=== PATIENT | female | born 1985 | race Caucasian/White ===

== ENCOUNTER 2016-10-30 10:59 | Emergency (ER) | payer OTHER ==
[~2016-10-30] VITALS: Ht 149.9 cm; Wt 56.5 kg
[2016-10-30 11:01] VITALS: BP 129/63; PULSE 89; RESP 18; TEMP 98.6; O2SAT 100
--- NOTE | 2016-10-30 12:23 | PD ---
HPI . 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 Patient says she initially started about 5 days ago with some pink blood, now with dark brown. She says she took a test and it was positive. She says she is a proximally 6 weeks . She recently made an appoint with her CONE TRUCKER, but can't get in until November 21. She was told to come to the emergency department for further evaluation. She does admit to some lower abdominal cramping for the past 5 days. She denies any high risk sexual behavior. She doesn't really want a pelvic exam unless it is absolutely necessary. PFSH Past Medical History ?: Social History Alcohol Use: No Tobacco Use: No Substance Use: No Allergies-Medications (Allergen,Severity, Reaction): Coded Allergies: No Known Allergies (Unverified , 10/30/16) Reported Meds & Prescriptions Reported Meds & Active Scripts Active No Active Prescriptions or Reported Medications Review of Systems General / Constitutional: No: Fever Eyes: No: Visual changes HENT: No: Headaches Cardiovascular: No: Chest Pain or Discomfort Respiratory: No: Shortness of Breath Gastrointestinal: No: Abdominal Pain Genitourinary: Positive: Vaginal Bleeding, No: Dysuria Musculoskeletal: No: Pain Skin: No Rash Neurologic: No: Weakness Psychiatric: No: Depression Endocrine: No: Polydipsia Hematologic/Lymphatic: No: Easy Bruising Physical Exam Narrative GENERAL: AAO x 3, no acute distress, Well-nourished, well-developed patient. SKIN: Warm and dry. No visible rashes or bruising. HEAD: Normocephalic and atraumatic. EYES: No scleral icterus. No injection or drainage. ENT: No nasal drainage noted. Mucous membranes pink. Airway patent. NECK: Supple, trachea midline. No JVD. CARDIOVASCULAR: Regular rate and rhythm without murmurs, gallops, or rubs. RESPIRATORY: Breath sounds equal bilaterally. No accessory muscle use. No rhonchi or rales. GASTROINTESTINAL: Abdomen soft, non-tender, nondistended. EXTREMITIES: No cyanosis or edema. BACK: No obvious deformity. NEURO: CN II-12 intact, PSYCH: AAO x 3, normal affect. Data Data Last Documented VS Vital Signs Date Time Temp Pulse Resp B/P Pulse Ox O2 Delivery O2 Flow Rate FiO2 10/30/16 12:24 16 10/30/16 11:01 98.6 89 129/63 100 Room Air Orders Complete Blood Count With Diff (10/30/16 12:24) Basic Metabolic Panel (Bmp) (10/30/16 12:24) Urinalysis - C+S If Indicated (10/30/16 12:24) Ed Urine Pregnancytest Poc (10/30/16 12:24) Beta Hcg (Quant/Titer) (10/30/16 12:49) Us Pelvis (Ques Pr/Ect)W Trans (10/30/16 ) Labs Laboratory Tests Test 10/30/16 12:30 White Blood Count 7.8 TH/MM3 Red Blood Count 4.68 MIL/MM3 Hemoglobin 12.8 GM/DL Hematocrit 37.9 % Mean Corpuscular Volume 81.1 FL Mean Corpuscular Hemoglobin 27.3 PG Mean Corpuscular Hemoglobin 33.6 % Concent Red Cell Distribution Width 14.9 % Platelet Count 188 TH/MM3 Mean Platelet Volume 10.0 FL Neutrophils (%) (Auto) 67.1 % Lymphocytes (%) (Auto) 22.3 % Monocytes (%) (Auto) 8.4 % Eosinophils (%) (Auto) 1.7 % Basophils (%) (Auto) 0.5 % Neutrophils # (Auto) 5.2 TH/MM3 Lymphocytes # (Auto) 1.7 TH/MM3 Monocytes # (Auto) 0.6 TH/MM3 Eosinophils # (Auto) 0.1 TH/MM3 Basophils # (Auto) 0.0 TH/MM3 CBC Comment DIFF FINAL Differential Comment Urine Color YELLOW Urine Turbidity HAZY Urine pH 6.5 Urine Specific [place] 1.025 Urine Protein TRACE mg/dL Urine Glucose (UA) NEG mg/dL Urine Ketones NEG mg/dL Urine Occult Blood MOD Urine Nitrite NEG Urine Bilirubin NEG Urine Urobilinogen LESS THAN 2.0 MG/DL Urine Leukocyte Esterase TRACE Urine RBC 1 /hpf Urine WBC 3 /hpf Urine Squamous Epithelial 1 /hpf Cells Urine Amorphous Sediment FEW Urine Bacteria OCC /hpf Urine Mucus MOD /lpf Microscopic Urinalysis Comment CULT NOT INDICATED Sodium Level 139 MEQ/L Potassium Level 3.7 MEQ/L Chloride Level 106 MEQ/L Carbon Dioxide Level 27.1 MEQ/L Anion Gap 6 MEQ/L Blood Urea Nitrogen 12 MG/DL Creatinine 0.60 MG/DL Estimat Glomerular Filtration 117 ML/MIN Rate Random Glucose 69 MG/DL Calcium Level 8.6 MG/DL Human Chorionic Gonadotropin, 7610 MIU/ML Quant MDM Medical Decision Making Medical Screen Exam Complete: Yes Emergency Medical Condition: Yes Medical Record Reviewed: Yes Differential Diagnosis threatened , implantation bleeding, spontaneous Narrative Course 31-year-old female here with complaints of vaginal spotting. She also has some cramping abdominal pain. Labs have been ordered. Ultrasound ordered. Patient declined a pelvic exam. I advised her that this is how we collect samples for STDs etc. She was not concerned with exposure. I discussed the results with the patient. I recommend repeat beta hCG in 2 days. Laboratory Tests Test 10/30/16 12:30 White Blood Count 7.8 TH/MM3 Red Blood Count 4.68 MIL/MM3 Hemoglobin 12.8 GM/DL Hematocrit 37.9 % Mean Corpuscular Volume 81.1 FL Mean Corpuscular Hemoglobin 27.3 PG Mean Corpuscular Hemoglobin 33.6 % Concent Red Cell Distribution Width 14.9 % Platelet Count 188 TH/MM3 Mean Platelet Volume 10.0 FL Neutrophils (%) (Auto) 67.1 % Lymphocytes (%) (Auto) 22.3 % Monocytes (%) (Auto) 8.4 % Eosinophils (%) (Auto) 1.7 % Basophils (%) (Auto) 0.5 % Neutrophils # (Auto) 5.2 TH/MM3 Lymphocytes # (Auto) 1.7 TH/MM3 Monocytes # (Auto) 0.6 TH/MM3 Eosinophils # (Auto) 0.1 TH/MM3 Basophils # (Auto) 0.0 TH/MM3 CBC Comment DIFF FINAL Differential Comment Urine Color YELLOW Urine Turbidity HAZY Urine pH 6.5 Urine Specific [place] 1.025 Urine Protein TRACE mg/dL Urine Glucose (UA) NEG mg/dL Urine Ketones NEG mg/dL Urine Occult Blood MOD Urine Nitrite NEG Urine Bilirubin NEG Urine Urobilinogen LESS THAN 2.0 MG/DL Urine Leukocyte Esterase TRACE Urine RBC 1 /hpf Urine WBC 3 /hpf Urine Squamous Epithelial 1 /hpf Cells Urine Amorphous Sediment FEW Urine Bacteria OCC /hpf Urine Mucus MOD /lpf Microscopic Urinalysis Comment CULT NOT INDICATED Sodium Level 139 MEQ/L Potassium Level 3.7 MEQ/L Chloride Level 106 MEQ/L Carbon Dioxide Level 27.1 MEQ/L Anion Gap 6 MEQ/L Blood Urea Nitrogen 12 MG/DL Creatinine 0.60 MG/DL Estimat Glomerular Filtration 117 ML/MIN Rate Random Glucose 69 MG/DL Calcium Level 8.6 MG/DL Human Chorionic Gonadotropin, 7610 MIU/ML Quant Patient verbalized understanding of instructions, questions were answered, and thanked me for their care. I advised them if their condition worsens, please return to the nearest emergency room for further care. Diagnosis Primary Impression: Vaginal bleeding Additional Impression: Qualified Code: Z3A.01 - Less than 8 weeks gestation of Patient Instructions: General Instructions Additional Instructions: Please return in 2 days for a repeat beta hCG level, or have this done by your [facility] TRUCKER. Med/Other Pt SpecificInfo: No Change to Meds Scripts No Active Prescriptions or Reported Meds Disposition: 01 DISCHARGE HOME Condition: Stable Reina Driscoll Oct 30, 2016 12:23
[2016-10-30 12:51] LABS: AUTOMATED NEUTROPHIL # 5.2 TH/MM3 (1.8-7.7); BASOPHIL % 0.5 % (0.0-2.0); EOSINOPHIL # 0.1 TH/MM3 (0-0.4); EOSINOPHIL % 1.7 % (0.0-4.0); HEMATOCRIT 37.9 % (35.0-46.0); HEMO FLAGS DIFF FINAL; LYMPH % 22.3 % (9.0-44.0); LYMPHOCYTE # 1.7 TH/MM3 (1.0-4.8); MEAN CELL VOLUME 81.1 FL (80.0-100.0); MEAN CORPUSCULAR HEMOGLOBIN 27.3 PG (27.0-34.0); MEAN CORPUSCULAR HGB CONC 33.6 % (32.0-36.0); MONO % 8.4 % (0.0-8.0); NEUT % 67.1 % (16.0-70.0); PLATELET COUNT 188 TH/MM3 (150-450); RED BLOOD COUNT 4.68 MIL/MM3 (4.00-5.30); RED CELL DISTRIBUTION WIDTH 14.9 % (11.6-17.2); WHITE BLOOD COUNT 7.8 TH/MM3 (4.0-11.0)
[2016-10-30 12:54] LABS: BACTERIA, URINE OCC /hpf; BLOOD, URINE MOD (NEG); COMMENT (UR) CULT NOT INDICATED; CULTURE IF INDICATED CULT NOT INDICATED; GLUCOSE,URINE NEG (NEG); KETONE, URINE NEG (NEG); MUCUS URINE MOD /lpf (OCC); NITRITE,URINE NEG (NEG); PH, URINE 6.5 (5.0-8.5); SQUAMOUS EPITHELIAL CELL URINE 1 /hpf (0-5); URINE COLOR YELLOW (YELLW/STRAW)
[2016-10-30 13:10] LABS: BICARBONATE 27.1 MEQ/L (21.0-32.0); POTASSIUM 3.7 MEQ/L (3.5-5.1)
[2016-10-30 13:23] LABS: BETA HCG QUANT 7610 MIU/ML (0-5)
--- NOTE | 2016-10-30 13:56 | RADRPT ---
EXAM DATE/TIME: 10/30/2016 12:59 [facility] COMPARISON: No previous studies available for comparison. INDICATIONS : Pelvic cramping and spotting. LAB(S): Beta-hC,610 MEDICAL HISTORY : . SURGICAL HISTORY : section. ENCOUNTER: Initial ACUITY: 4-6 days PAIN SCORE: 3/10 LOCATION: Bilateral pelvis MEASUREMENTS: UTERUS: 9.8 x 7.7 x 5.2 cm ENDOMETRIAL STRIPE: 18 mm RIGHT OVARY: 3.0 x 3.2 x 1.8 cm LEFT OVARY: 2.9 x 2.7 x 1.4 cm FREE FLUID: Yes posterior cul de sac CROWN RUMP LENGTH: 0.4 cm = 6 WKS 0 DAYS FHR: 124 BPM FINDINGS: UTERUS: Heterogeneous echotexture without a mass. section scar is present. There is an eccentrically located gestational sac within the endometrium measuring 1.3 x 1.1 x 0.8 cm. Yolk sac is present and embryo crown-rump length measurement is 0.35 cm. M. mode Doppler documented heart rate of 124 beats per minute. RIGHT OVARY: Ovary contains no mass or significant cystic lesion. Follicles are present. LEFT OVARY: Ovary contains no mass or significant cystic lesion. Follicles are present. MISCELLANEOUS: No significant free fluid. CONCLUSION: Normal intrauterine with estimated age of 6 weeks and zero days. heart rate of 124 be ats per minute is documented. Marciano Malik MD on October 30, 2016 at 13:50 Board Certified Radiologist. This report was verified electronically.
== END 2016-10-30 14:21 | disposition home or self-care (01) ==
LOC: NEPD 10:59
DX: O20.9 Hemorrhage in early pregnancy, unspecified (principal); Z3A.01 Less than 8 weeks gestation of pregnancy
CPT/HCPCS: 76700; 76817; 80048; 81001; 84702; 84703; 85025

== ENCOUNTER 2016-11-01 13:50 | Emergency (ER) | payer OTHER ==
[~2016-11-01] VITALS: Ht 149.9 cm; Wt 56.5 kg
[2016-11-01 13:51] VITALS: BP 127/60; PULSE 87; RESP 18; TEMP 98.7; O2SAT 100
--- NOTE | 2016-11-01 14:15 | PD ---
HPI Chief Complaint: Medical Clearance Time Seen by Provider: 14:15 Travel History International Travel<30 days: No Contact w/Intl Traveler<30days: No Traveled to known affect area: No History of Present Illness HPI 31-year-old female presents to emergency department for evaluation of beta hCG. Patient was seen and evaluated 2 days ago. 6 week intrauterine gestation was noted. She was encouraged to return in 2 days for repeat beta. Patient does report very small amount of brownish spotting. Mild abdominal cramping. No fever or chills. No nausea or vomiting. No other symptoms to report. PFS Past Medical History Medical History: Denies Significant Hx ?: Past Surgical History Surgical History: No Previous Surgery Section: Yes (x2) Social History Alcohol Use: No Tobacco Use: No Substance Use: No Allergies-Medications (Allergen,Severity, Reaction): Coded Allergies: No Known Allergies (Unverified , 10/30/16) Reported Meds & Prescriptions Reported Meds & Active Scripts Active No Active Prescriptions or Reported Medications Review of Systems Except as stated in HPI: all other systems reviewed are Neg Physical Exam Narrative GENERAL: Well-nourished, well-developed female patient, in no acute distress SKIN: Focused skin assessment warm/dry. HEAD: Normocephalic. EYES: No scleral icterus. No injection or drainage. NECK: Supple, trachea midline. No JVD or lymphadenopathy. CARDIOVASCULAR: Regular rate and rhythm without murmurs, gallops, or rubs. RESPIRATORY: Breath sounds equal bilaterally. No accessory muscle use. GASTROINTESTINAL: Abdomen soft, non-tender, nondistended. MUSCULOSKELETAL: No cyanosis, or edema. BACK: Nontender without obvious deformity. No CVA tenderness. Data Data Last Documented VS Vital Signs Date Time Temp Pulse Resp B/P Pulse Ox O2 Delivery O2 Flow Rate FiO2 11/01/16 13:51 98.7 87 18 127/60 100 Room Air Orders Beta Hcg (Quant/Titer) (11/01/16 13:52) Labs Laboratory Tests Test 11/01/16 14:05 Human Chorionic Gonadotropin, 9570 MIU/ML Quant [facility] Medical Decision Making Medical Screen Exam Complete: Yes Emergency Medical Condition: Yes Medical Record Reviewed: Yes Differential Diagnosis versus menses versus and versus missed Narrative Course 31-year-old female presents to the emergency department for recheck beta hCG. Beta hCG has increased to 9570. I have instructed the patient to follow-up with PLASTIC EXTRUSION OPERATOR. To maintain pelvic and adequate oral hydration. Her voices understanding. She agrees to return immediately with any acute worsening of symptoms. Diagnosis Primary Impression: Qualified Code: Z3A.01 - Less than 8 weeks gestation of Additional Impression: Vaginal bleeding Referrals: Movie Writer Patient Instructions: General Instructions, Threatened Miscarriage (ED) Additional Instructions: Pelvic rest Follow-up with a primary care provider Seek bin packer evaluation Return immediately with any acute worsening of symptoms Med/Other Pt SpecificInfo: No Change to Meds Scripts No Active Prescriptions or Reported Meds Disposition: DISCHARGE HOME Condition: Stable ChuyJoana SARMIENTO Nov 01, 2016 14:15
[2016-11-01 15:16] LABS: BETA HCG QUANT 9570 MIU/ML (0-5)
== END 2016-11-01 15:49 | disposition home or self-care (01) ==
LOC: NEPD 13:50
DX: O20.9 Hemorrhage in early pregnancy, unspecified (principal); Z3A.01 Less than 8 weeks gestation of pregnancy
CPT/HCPCS: 84702; 99283

== ENCOUNTER 2017-06-14 08:53 | Inpatient (IN) | payer OTHER ==
[~2017-06-14] VITALS: Ht 149.9 cm; Wt 65.0 kg
[2017-06-14] VITALS (11 sets, daily range): BP systolic 102–135; BP diastolic 61–94; PULSE 83–119; RESP 16–18; TEMP 97.8–98.7; O2SAT 100
[2017-06-14] MEDS: PCA - TOTAL MG MORPHINE DELIVERED PER SHIFT SCH (01:06)
[2017-06-14] MEDS ORDERED: LACTATED RINGER'S 1000 ML INJ 1,000 ML IV ONE ×2 (09:09→12:00)
[2017-06-14] MEDS ORDERED: ACETAMINOPHEN 1000 MG/100 ML 100 ML IV ONE ×2 (09:18→18:15)
[2017-06-14] MEDS ORDERED: MORPHINE SULFATE PF 5 MG/10 ML VIAL ONE (09:18)
--- NOTE | 2017-06-14 09:25 | HHI.HP ---
HPI Chief Complaint scheduled C/S Date Seen: Jun 14, 2017 Time Seen: 09:15 Travel History International Travel<30 Days: No Contact w/Intl Traveler<30Days: No Known Affected Area: No History of Present Illness HPI Mrs. Somers is a 31yo at 39/2 weeks gestation with no significant PMH presenting today for repeat C/S. She states that she has no complaints. No CP, no GONZALEZ, no blurry vision, no contractions, no vaginal bleeding, no dysuria. She is feeling the baby move. 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 denies alcohol, tobacco, or illicit drug use Alcohol Use: No Tobacco Use: No Substance Abuse: No Allergies-Medications (Allergen,Severity, Reaction): Coded Allergies: No Known Allergies (Unverified Allergy, Unknown, 06/14/17) Home Meds No Active Prescriptions or Reported Meds Review of Systems General / Constitutional: No: Fever, Chills Eyes: No: Blurred Vision HENT: No: Headaches Cardiovascular: No: Chest Pain or Discomfort Respiratory: No: Short of Breath Gastrointestinal: No: Nausea, Vomiting, Abdominal Pain Genitourinary: No: Dysuria Musculoskeletal: No: Weakness Skin: No Rash Physical Exam Vital Signs Date Time Temp Pulse Resp B/P (MAP) Pulse Ox O2 Delivery O2 Flow Rate FiO2 06/14/17 09:16 98.7 18 06/14/17 09:16 83 135/88 (104) 06/14/17 09:15 119 119/94 (102) Narrative GENERAL: Well-nourished, well-developed patient. SKIN: Warm and dry. HEAD: Normocephalic and atraumatic. EYES: No scleral icterus. No injection or drainage. ENT: No nasal drainage noted. Mucous membranes pink. Airway patent. NECK: Supple, trachea midline. No JVD. CARDIOVASCULAR: Regular rate and rhythm without murmurs, gallops, or rubs. RESPIRATORY: Breath sounds equal bilaterally. No accessory muscle use. ABDOMEN/GI: Abdomen soft, non-tender, bowel sounds present, no rebound, no guarding Gravid to 39 weeks size FHT's: Category: 1 Baseline: 130s Reactive: yes Variability: moderate Decels: none EXTREMITIES: No cyanosis or edema. BACK: Nontender without obvious deformity. No CVA tenderness. NEUROLOGICAL: Awake and alert. Motor and sensory grossly within normal limits. Five out of 5 muscle strength in all muscle groups. Normal speech. Caprini VTE Risk Assessment Caprini VTE Risk Assessment: Mod/High Risk (score >= 2) Caprini Risk Assessment Model Point Value = 1 Point Value = 2 Point Value = 3 Point Value = 5 Age 41-60 Minor surgery BMI > 25 kg/m2 Swollen legs Varicose veins or History of unexplained or recurrent spontaneous Oral contraceptives or hormone replacement Sepsis (< 1 month) Serious lung disease, including pneumonia (< 1 month) Abnormal pulmonary function Acute myocardial infarction Congestive heart failure (< 1 month) History of inflammatory bowel disease Medical patient at bed rest Age 61-74 Arthroscopic surgery Major open surgery (> 45 min) Laparoscopic surgery (> 45 min) Malignancy Confined to bed (> 72 hours) Immobilizing plaster cast Central venous access Age >= 75 History of VTE Family history of VTE Factor V Leiden Prothrombin [id number] Lupus anticoagulant Anticardiolipin antibodies Elevated serum homocysteine Heparin-induced thrombocytopenia Other congenital or acquired thrombophilia Stroke (< 1 month) Elective arthroplasty Hip, pelvis, or leg fracture Acute spinal cord injury (< 1 month) Prophylaxis Regimen Total Risk Factor Score Risk Level Prophylaxis Regimen 0-1 Low Early ambulation 2 Moderate Order ONE of the following: *Sequential Compression Device (SCD) *Heparin 5000 units SQ BID 3-4 Higher Order ONE of the following medications: *Heparin 5000 units SQ TID *Enoxaparin/Lovenox 40 mg SQ daily (WT < 150 kg, CrCl > 30 mL/min) *Enoxaparin/Lovenox 30 mg SQ daily (WT < 150 kg, CrCl > 10-29 mL/min) *Enoxaparin/Lovenox 30 mg SQ BID (WT < 150 kg, CrCl > 30 mL/min) AND/OR *Sequential Compression Device (SCD) 5 or more Highest Order ONE of the following medications: *Heparin 5000 units SQ TID (Preferred with Epidurals) *Enoxaparin/Lovenox 40 mg SQ daily (WT < 150 kg, CrCl > 30 mL/min) *Enoxaparin/Lovenox 30 mg SQ daily (WT < 150 kg, CrCl > 10-29 mL/min) *Enoxaparin/Lovenox 30 mg SQ BID (WT < 150 kg, CrCl > 30 mL/min) AND *Sequential Compression Device (SCD) Data Data Vital Signs Reviewed: Yes Orders Orders Admit To Inpatient (06/14/17 ) Vital Signs (Adult) .ON ADMISSION (06/14/17 09:09) Activity Oob Ad María (06/14/17 09:09) Heart (06/14/17 09:09) Urinary Catheter Management SOY.Q8H (06/14/17 09:09) ^ Preps (06/14/17 09:09) Scd / Xavier / Foot Pump SOY.QSHIFT (06/14/17 09:09) ^ Ultrasound For Locatio (06/14/17 09:09) Diet Npo (06/14/17 Breakfast) Lactated Ringer's 1000 Ml Inj (Lr 1000 M (06/14/17 09:09) Lactated Ringer's 1000 Ml Inj (Lr 1000 M (06/14/17 09:39) Cefazolin Inj (Ancef Inj) (06/14/17 10:15) Citric Acid-Sodium Citrate Liq (Bicitra (06/14/17 10:45) Type And Screen (06/14/17 09:09) Complete Blood Count With Diff (06/14/17 09:09) Urinalysis - C+S If Indicated (06/14/17 09:09) Drug Screen, Random Urine (06/14/17 09:09) Specimen To Be Collected PRN (06/14/17 09:09) Specimen To Be Collected PRN (06/14/17 09:09) Morphine Pf Inj (Duramorph Pf 0.5 Mg/Ml (06/14/17 09:18) Acetaminophen 1000 Mg/100 Ml (Ofirmev 10 (06/14/17 09:18) Labs Laboratory Tests Test 06/14/17 09:00 06/14/17 09:10 Assessment/Plan Assessment and Plan 31yo at 39/2 weeks gestation presenting for a scheduled repeat C/S. - records were not found from [facility] -Will conduct labs at this time -Hepatitis panel, HIV, RPR, Rubella pending -CBC on admission with type and screen Admit for C/S DW Delia Herron MD R1 Jun 14, 2017 09:25
[2017-06-14 09:33] LABS: AUTOMATED NEUTROPHIL # 6.4 TH/MM3 (1.8-7.7); BASOPHIL % 0.5 % (0.0-2.0); EOSINOPHIL # 0.1 TH/MM3 (0-0.4); HEMATOCRIT 36.4 % (35.0-46.0); HEMOGLOBIN 12.3 GM/DL (11.6-15.3); LYMPH % 17.6 % (9.0-44.0); LYMPHOCYTE # 1.6 TH/MM3 (1.0-4.8); MEAN CELL VOLUME 83.2 FL (80.0-100.0); MEAN CORPUSCULAR HEMOGLOBIN 28.1 PG (27.0-34.0); MEAN CORPUSCULAR HGB CONC 33.8 % (32.0-36.0); MEAN PLATELET VOLUME 10.6 FL (7.0-11.0); MONO % 9.6 % (0.0-8.0); MONOCYTE # 0.9 TH/MM3 (0-0.9); NEUT % 71.3 % (16.0-70.0); PLATELET COUNT 162 TH/MM3 (150-450); RED BLOOD COUNT 4.38 MIL/MM3 (4.00-5.30); RED CELL DISTRIBUTION WIDTH 14.3 % (11.6-17.2); WHITE BLOOD COUNT 8.9 TH/MM3 (4.0-11.0)
[2017-06-14] MEDS ORDERED: LACTATED RINGER'S 1000 ML INJ 1,000 ML IV SCH (09:39)
[2017-06-14 09:47] LABS: BACTERIA, URINE OCC /hpf; BILIRUBIN, URINE NEG (NEG); BLOOD, URINE NEG (NEG); GLUCOSE,URINE NEG (NEG); KETONE, URINE NEG (NEG); NITRITE,URINE NEG (NEG); SQUAMOUS EPITHELIAL CELL URINE 5 /hpf (0-5); URINE COLOR LIGHT-YELLOW (YELLW/STRAW); URINE LEUKOCYTE ESTERASE TRACE (NEG)
[2017-06-14] MEDS ORDERED: CITRIC ACID-SODIUM CITRATE LIQ 30 ML UDC PO SCH (10:45)
[2017-06-14] MEDS ORDERED: MIDAZOLAM HCL 2 MG/2 ML VIAL ONE (11:38)
[2017-06-14] MEDS ORDERED: BUPIVACAINE HCL PF 0.25% 10 ML VIAL ONE ×3 (11:49→12:24)
[2017-06-14] MEDS ORDERED: DEXAMETHASONE SOD PHOS 4 MG/ML VIAL IV ONE (12:00)
[2017-06-14] MEDS ORDERED: PHENYLEPH/NS 1000 MCG/10 ML SYR IV ONE (12:00)
[2017-06-14] MEDS ORDERED: ONDANSETRON HCL 4 MG/2 ML VIAL IV ONE (12:00)
[2017-06-14] MEDS ORDERED: KETOROLAC TROMETHAMINE 30 MG/ML (IVP) VIAL IV PUSH ONE (12:00)
[2017-06-14] MEDS ORDERED: ceFAZolin INJ 1,000 MG VIAL IV ONE (12:00)
[2017-06-14] MEDS ORDERED: OXYTOCIN 10 UNIT/ML AMP IV ONE (12:00)
[2017-06-14] MEDS ORDERED: PROPOFOL 200 MG/20 ML AMP IV ONE (12:00)
--- NOTE | 2017-06-14 12:48 | PD.OB.DELI ---
Procedure Note Section Procedure Pre Op Diagnosis: (1) 39 weeks gestation of (2) H/O section Post Op Diagnosis: (1) 39 weeks gestation of (2) H/O section Performed by Dima Humphrey Procedure: Repeat Low Transverse Sec, Classical Section Indication for delivery: Desired elective repeat Previous condition: None Informed consent obtained: For anesthesia, For procedure Confirmed correct: Patient, Time-out taken Anesthesia: Spinal Monitoring during procedure: Blood pressure monitoring, environmental monitoring specialist, Pulse oximetry Urinary catheter: Inserted using sterile technique Sterile preparation: In usual fashion Position: Supine with wedge to left side Operative Features Skin Incision: Pfannenstiel Uterine Incision: Classical, Low transverse w/knife / blunt ext Membranes Ruptured: Artificially Presentation: Occiput anterior, Transverse lie Delivery date: Jun 14, 2017 Delivery time: 11:02 Delivery of infant: Other Infant: Female One Minute : 6 Five Minute : 8 Weight: 6'4" Status of : Viable, Nursery present, Resuscitation required Placenta delivered: Intact Medications: Antibiotics Estimated blood loss: 700cc Procedure tolerated: Well Maternal Condition: Stable Condition: Stable Dima Humphrey Jr., MD Jun 14, 2017 12:48
[2017-06-14] MEDS ORDERED: OXYTOCIN 30 UNITS-500ML PREMIX 500 ML ONE (12:59)
[2017-06-14] MEDS ORDERED: ACETAMINOPHEN 325 MG TAB PO PRN (14:15)
[2017-06-14] MEDS ORDERED: ONDANSETRON HCL 4 MG/2 ML VIAL IV PUSH PRN (14:15)
[2017-06-14] MEDS ORDERED: SODIUM CHLORIDE 0.9% FLUSH 10 ML FLUSH IV FLUSH PRN (14:15)
[2017-06-14] MEDS ORDERED: MORPHINE SULFATE 30 MG/30 ML PCA IV SCH (14:15)
[2017-06-14] MEDS ORDERED: NALOXONE HCL 0.4 MG/ML AMP IV PUSH PRN (14:15)
[2017-06-14] MEDS ORDERED: OXYTOCIN 30 UNITS-500ML PREMIX 500 ML IV ONE (14:15)
[2017-06-14] MEDS ORDERED: EPIDURAL-DIPHENHYDRAMINE HCL 50 MG/ML VIAL IV PUSH PRN (18:30)
[2017-06-14] MEDS ORDERED: EPIDURAL-DIPHENHYDRAMINE HCL 50 MG CAP PO PRN (18:30)
[2017-06-14] MEDS ORDERED: EPIDURAL-NALOXONE HCL 0.4 MG/ML AMP IV PUSH PRN (18:30)
[2017-06-14] MEDS ORDERED: EPIDURAL-NO SYSTEMIC NARCOTICS PRN (18:30)
[2017-06-14] MEDS ORDERED: EPIDURAL-DO NOT ADMINISTER ANTICOAGULANTS PRN (18:30)
[2017-06-14] MEDS: ACETAMINOPHEN 1000 MG/100 ML 100 ML IV SCH (19:32)
[2017-06-14] MEDS: LACTATED RINGER'S 1000 ML INJ 1,000 ML IV SCH (19:36)
[2017-06-14] MEDS ORDERED: SODIUM CHLORIDE 0.9% FLUSH 10 ML FLUSH IV FLUSH SCH (21:00)
[2017-06-15] VITALS (10 sets, daily range): BP systolic 110–146; BP diastolic 56–74; PULSE 69–112; RESP 18–20; TEMP 97.9–99; O2SAT 96–100
[2017-06-15] MEDS ORDERED: OXYTOCIN 30 UNITS-500ML PREMIX 500 ML IV PRN (00:15)
[2017-06-15] MEDS: LACTATED RINGER'S 1000 ML INJ 1,000 ML IV SCH (01:04)
[2017-06-15] MEDS: ACETAMINOPHEN 1000 MG/100 ML 100 ML IV SCH (01:04)
[2017-06-15] MEDS: PCA - TOTAL MG MORPHINE DELIVERED PER SHIFT SCH ×2 (05:48→09:57)
[2017-06-15 05:53] LABS: AUTOMATED NEUTROPHIL # 7.5 TH/MM3 (1.8-7.7); BASOPHIL % 0.2 % (0.0-2.0); EOSINOPHIL # 0.1 TH/MM3 (0-0.4); EOSINOPHIL % 0.6 % (0.0-4.0); LYMPH % 13.3 % (9.0-44.0); LYMPHOCYTE # 1.3 TH/MM3 (1.0-4.8); MEAN CELL VOLUME 83.2 FL (80.0-100.0); MEAN CORPUSCULAR HGB CONC 34.9 % (32.0-36.0); MEAN PLATELET VOLUME 10.5 FL (7.0-11.0); MONO % 9.8 % (0.0-8.0); NEUT % 76.1 % (16.0-70.0); PLATELET COUNT 100 TH/MM3 (150-450); RED BLOOD COUNT 2.09 MIL/MM3 (4.00-5.30); RED CELL DISTRIBUTION WIDTH 14.2 % (11.6-17.2); WHITE BLOOD COUNT 9.9 TH/MM3 (4.0-11.0)
[2017-06-15 05:59] LABS: HEMATOCRIT 17.4 % (35.0-46.0); HEMOGLOBIN 6.1 GM/DL (11.6-15.3)
--- NOTE | 2017-06-15 06:58 | HHI.OB ---
Subjective Post Operative Day: 1 Remarks Postoperative day #1. AFVSS overnight. Pain well controlled. Incision clean, dry , and intact, mildly draining. Lochia less than a period. Denies dysuria - spontaneous voiding of 400 ml. No breast tenderness. She is feeding the baby via breast. Appetite good. No nausea or vomiting. Positive flatus. No bowel movement. Ambulating well. Denies fever, chills, cough, shortness of breath, chest pain, blurry vision, muscle cramping, and calf pain. Only complaint is dizziness on standing and with ambulation. Objective Vitals/I&O Vital Signs Date Time Temp Pulse Resp B/P (MAP) Pulse Ox O2 Delivery O2 Flow Rate FiO2 06/15/17 05:48 16 06/15/17 04:00 69 18 121/61 (81) 97 06/15/17 04:00 98.5 06/15/17 00:00 97.9 69 18 110/56 (74) 99 06/14/17 19:32 16 06/14/17 15:42 98.0 98 18 113/72 (86) 06/14/17 13:32 117/67 (84) 06/14/17 13:31 111 18 06/14/17 13:31 100 06/14/17 13:21 97.9 06/14/17 13:16 102/74 (83) 06/14/17 13:14 113 18 100 06/14/17 13:03 112 06/14/17 13:01 18 115/64 (81) 100 06/14/17 12:41 97.8 16 100 06/14/17 12:41 88 121/61 (81) 06/14/17 09:16 98.7 18 06/14/17 09:16 83 135/88 (104) 06/14/17 09:15 119 119/94 (102) Result Diagram: 06/15/17 0501 Objective Remarks GENERAL: Well-nourished, well-developed patient. CARDIOVASCULAR: Regular rate and rhythm without murmurs, gallops, or rubs. RESPIRATORY: Breath sounds equal bilaterally. No accessory muscle use. ABDOMEN/GI: Abdomen soft, mildly tender, bowel sounds present. Incision: Clean, dry and intact. Fundus: Firm, non-tender at umbilicus. GENITOURINARY: Light to moderate bleeding. EXTREMITIES: No cyanosis or edema, non-tender, without signs of DVT. Medications and IVs Current Medications Medications (Trade) Dose Ordered Sig/Evelio Route Start Time Stop Time Status Last Admin Lactated Ringer's 1,000 ml @ 100 mls/hr Q10H IV 06/14/17 19:11 06/15/17 15:10 06/15/17 01:04 Oxytocin 500 ml @ 100 mls/hr UNSCH X1 PRN IV 06/15/17 00:15 06/16/17 00:14 (NS Flush) 2 ml BID IV FLUSH 06/14/17 21:00 (NS Flush) 2 ml UNSCH PRN IV FLUSH 06/14/17 14:15 (Mylicon Chew) 80 mg QID PRN PO 06/14/17 14:15 (Tylenol) 650 mg Q6H PRN PO 06/14/17 14:15 (Percocet 5-325 Mg) 1 tab Q4H PRN PO 06/14/17 14:15 (Percocet 5-325 Mg) 2 tab Q4H PRN PO 06/14/17 14:15 (Dot-Colace) 2 tab Q12H PRN PO 06/14/17 14:15 (M-M-R Ii Inj) 0.5 ml ONCE ONCE SQ 06/15/17 16:00 06/15/17 16:01 (Boostrix Inj) 0.5 ml ONCE ONCE IM 06/15/17 16:00 06/15/17 16:01 (Zofran Inj) 4 mg Q6H PRN IV PUSH 06/14/17 14:15 (Narcan Inj) 0.4 mg UNSCH PRN IV PUSH 06/14/17 14:15 (Morphine 1 Mg/ ml CLEANER WALL) 30 mg UNSCH IV 06/14/17 14:15 06/14/17 19:32 CLEANER WALL Dosage Infused (Pha) 1 Q8HR .XX 06/14/17 22:00 06/15/17 05:48 (Flu (Quadrivalent) Vaccine Inj) 0.5 ml ONCE ONCE IM 06/15/17 09:00 06/15/17 09:01 Miscellaneous Information NO SYSTEMIC NARCOTICS TO BE GIVEN FO... UNSCH PRN .XX 06/14/17 18:30 06/15/17 18:29 (Narcan Inj) 0.4 mg UNSCH PRN IV PUSH 06/14/17 18:30 06/15/17 18:29 (Benadryl Inj) 25 mg Q6H PRN IV PUSH 06/14/17 18:30 06/15/17 18:29 (Benadryl) 50 mg Q6H PRN PO 06/14/17 18:30 06/15/17 18:29 Miscellaneous Information ALL NURSING DEPARTMENTS UNSCH PRN .XX 06/14/17 18:30 06/15/17 18:29 (Ferrous Sulfate) 325 mg BID PO 06/15/17 09:00 Assessment/Plan Assessment and Plan 31 y/o female who is POD# 1 s/p repeat -Continue routine care -Percocet and Motrin PRN pain -Pericolase PRN for constipation -Encouraged OOB. Advised pelvic rest for 6 wks -Will need a follow-up appointment within 1 week for incision check -Re: ctrl - pt has not decided but may get a vasectomy Postoperative blood loss -H/H decreased from 12.3/36.4 to 6.1/17.4 -Patient symptomatic with dizziness -Will transfuse 1 unit PRBC -Repeat H/H 2 hours after transfusion and tomorrow am Seen and discussed with Dr. Humphrey Discharge Planning Possibly in the next 1-2 days Lindsey Howard MD Jun 15, 2017 06:58
[2017-06-15] MEDS ORDERED: diphenhydrAMINE HCL 25 MG CAP PO PRN (07:15)
[2017-06-15] MEDS ORDERED: SODIUM CHLOR 0.9% 250 ML INJ 250 ML IV ONE (07:15)
[2017-06-15] MEDS ORDERED: ACETAMINOPHEN 325 MG TAB PO PRN (07:15)
[2017-06-15] MEDS ORDERED: INFLUENZA VIRUS VACCINE (QUADRIVALENT) 0.5 ML SYR IM ONE (09:00)
[2017-06-15] MEDS: DOCUSATE SODIUM 50 MG/SENNA 8.6 MG TAB PO PRN ×2 (09:55→22:25)
[2017-06-15] MEDS: FERROUS SULFATE 325 MG (65 MG ELEMENTAL IRON) TAB PO SCH ×2 (09:55→18:52)
[2017-06-15] MEDS: oxyCODONE/ACETAMINOPHEN 5 MG/325 MG TAB PO PRN ×4 (09:56→22:28)
[2017-06-15] MEDS: SIMETHICONE 80 MG CHEWABLE TAB PO PRN ×2 (13:00→22:25)
[2017-06-15] MEDS ORDERED: MEASLES, MUMPS, RUBELLA VACCINE 0.5 ML VIAL SQ ONE (16:00)
[2017-06-15] MEDS ORDERED: DIPHTH/TETANUS/ACEL PERTUSSIS (BOOSTER) 0.5 ML VIAL/PFS IM ONE (16:00)
[2017-06-15 17:16] LABS: HEMATOCRIT 22.4 % (35.0-46.0); HEMOGLOBIN 7.8 GM/DL (11.6-15.3)
[2017-06-16] MEDS: oxyCODONE/ACETAMINOPHEN 5 MG/325 MG TAB PO PRN ×5 (03:41→20:16)
[2017-06-16 06:29] LABS: HEMATOCRIT 21.6 % (35.0-46.0); HEMOGLOBIN 7.4 GM/DL (11.6-15.3); MEAN CELL VOLUME 84.3 FL (80.0-100.0); MEAN CORPUSCULAR HEMOGLOBIN 28.8 PG (27.0-34.0); MEAN CORPUSCULAR HGB CONC 34.1 % (32.0-36.0); MEAN PLATELET VOLUME 10.1 FL (7.0-11.0); PLATELET COUNT 106 TH/MM3 (150-450); RED BLOOD COUNT 2.56 MIL/MM3 (4.00-5.30); RED CELL DISTRIBUTION WIDTH 14.4 % (11.6-17.2); WHITE BLOOD COUNT 12.4 TH/MM3 (4.0-11.0)
[2017-06-16 08:00] VITALS: BP 124/58; PULSE 91; RESP 20; TEMP 98.2; O2SAT 100
[2017-06-16] MEDS: FERROUS SULFATE 325 MG (65 MG ELEMENTAL IRON) TAB PO SCH ×2 (08:37→20:16)
--- NOTE | 2017-06-16 08:52 | HHI.OB ---
Subjective Post Operative Day: 2 Remarks Pt seen and examined this morning. Post Operative day # 2 AFVSS overnight. Incision covered with multiple 4 x 4's under saturated foot appears to be dried blood. Decreased lochia. Denies dysuria. No breast tenderness. She is feeding the baby via breasts. Appetite good. No nausea or vomiting. Patient has not yet had a bowel movement, but does endorse bowel gas. Ambulating well. Denies calf pain or shortness of breath. Otherwise, she is doing well this morning and has no other concerns. Objective Vitals/I&O Vital Signs Date Time Temp Pulse Resp B/P (MAP) Pulse Ox O2 Delivery O2 Flow Rate FiO2 06/16/17 08:00 98.2 91 20 124/58 (80) 100 06/15/17 20:31 98.8 105 18 128/70 (89) 06/15/17 17:19 98.5 109 20 126/67 (86) 96 06/15/17 14:15 98.8 108 18 121/73 99 06/15/17 14:00 98.8 108 18 121/73 (89) 99 06/15/17 11:40 98.4 112 18 146/73 100 06/15/17 11:13 99.0 112 18 143/74 98 06/15/17 11:11 112 18 143/74 (97) 98 06/15/17 11:11 99.0 06/15/17 10:45 18 06/15/17 09:57 16 Result Diagram: 06/16/17 0546 Objective Remarks GENERAL: Well-nourished, well-developed patient. CARDIOVASCULAR: Regular rate and rhythm without murmurs, gallops, or rubs. RESPIRATORY: Breath sounds equal bilaterally. No accessory muscle use. ABDOMEN/GI: Abdomen soft, mildly tender, bowel sounds present. Incision: Clean, dry and intact. Fundus: Firm, non-tender at umbilicus. GENITOURINARY: Light to moderate bleeding. EXTREMITIES: No cyanosis or edema, non-tender, without signs of DVT. Medications and IVs Current Medications Medications (Trade) Dose Ordered Sig/Evelio Route Start Time Stop Time Status Last Admin (NS Flush) 2 ml BID IV FLUSH 06/14/17 21:00 (NS Flush) 2 ml UNSCH PRN IV FLUSH 06/14/17 14:15 (Mylicon Chew) 80 mg QID PRN PO 06/14/17 14:15 06/15/17 22:25 (Tylenol) 650 mg Q6H PRN PO 06/14/17 14:15 (Percocet 5-325 Mg) 1 tab Q4H PRN PO 06/14/17 14:15 06/15/17 18:13 (Percocet 5-325 Mg) 2 tab Q4H PRN PO 06/14/17 14:15 06/16/17 08:44 (Dot-Colace) 2 tab Q12H PRN PO 06/14/17 14:15 06/15/17 22:25 (Zofran Inj) 4 mg Q6H PRN IV PUSH 06/14/17 14:15 (Ferrous Sulfate) 325 mg BID PO 06/15/17 09:00 06/16/17 08:37 (Tylenol) 650 mg Q4H PRN PO 06/15/17 07:15 (Benadryl) 25 mg Q4H PRN PO 06/15/17 07:15 (Motrin) 600 mg Q6H PRN PO 06/16/17 08:45 UNV Assessment/Plan Assessment and Plan 31 y/o female who is POD# 2 s/p repeat -Continue routine care -Percocet and Motrin PRN pain -Pericolase PRN for constipation -Encouraged OOB. Advised pelvic rest for 6 wks -Will need a follow-up appointment within 1 week for incision check -Re: ctrl - pt has not decided but may get a vasectomy Postoperative blood loss -H/H 06/16/17: 7.4/21.6, stable from posttransfusion H/H -Patient symptomatic with dizziness exacerbated by ambulation -Transfused 1 unit PRBC 06/15/17 -Patient started on ferrous sulfate twice a day -Discharge likely tomorrow pending clinical course Seen and discussed with Lorenzo Caldwell MD R2 Jun 16, 2017 08:52
--- NOTE | 2017-06-16 08:52 | HHI.DCPOC ---
Discharge Care Plan Diagnosis: (1) Single delivery by Report Symptoms to Your Doctor -Temperature above 100.5 degrees -Redness, of incision or excessive or foul smelling drainage -Unusual pain or calf pain -Increased vaginal bleeding -Painful or difficulty urinating -Feelings of extreme sadness or anxiety after 2 weeks Goals to Promote Your Health * To prevent worsening of your condition and complications * To maintain your health at the optimal level Directions to Meet Your Goals Take your medications as prescribed Follow your dietary instruction Follow activity as directed Ensure plenty of rest for recovery Drink fluids for hydration Keep your appointments as scheduled Take your immunizations and boosters as scheduled If your symptoms worsen call your PCP, if no PCP go to Urgent Care Center or Emergency Room Smoking is Dangerous to Your Health. Avoid second hand smoke Call the 24-hour crisis hotline for domestic abuse at Lorenzo Cohen MD R2 Jun 16, 2017 08:52
[2017-06-16] MEDS: IBUPROFEN 600 MG TAB PO PRN ×3 (09:21→20:16)
[2017-06-16] MEDS: SIMETHICONE 80 MG CHEWABLE TAB PO PRN ×2 (09:21→20:23)
[2017-06-16 21:06] VITALS: BP 122/67; PULSE 91; RESP 19; TEMP 98.1
[2017-06-17] MEDS: IBUPROFEN 600 MG TAB PO PRN ×2 (04:14→10:41)
[2017-06-17] MEDS: oxyCODONE/ACETAMINOPHEN 5 MG/325 MG TAB PO PRN ×2 (04:15→10:41)
[2017-06-17] MEDS ORDERED: PERI PO (07:29)
[2017-06-17] MEDS ORDERED: IBUP-232 PO (07:29)
[2017-06-17] MEDS ORDERED: FERR325T20 PO ×2 (07:29→09:02)
[2017-06-17] MEDS ORDERED: OXYC1TAB63 PO (07:29)
[2017-06-17 07:40] VITALS: BP 121/64; PULSE 76; RESP 18; TEMP 97.8
--- NOTE | 2017-06-17 09:25 | HHI.OB ---
Subjective Post Operative Day: 3 Remarks Pt seen and examined this morning. Post Operative day #3 AFVSS overnight. Incision with multiple sudeep intact with no signs of acute infection. Decreased lochia. Denies dysuria. No breast tenderness. She is feeding the baby via the breast. Appetite good. No nausea or vomiting. Patient has not yet had a bowel movement, but does endorse bowel gas. Ambulating well. Denies calf pain or shortness of breath. Otherwise, she is doing well this morning and has no other concerns. Objective Vitals/I&O Vital Signs Date Time Temp Pulse Resp B/P (MAP) Pulse Ox O2 Delivery O2 Flow Rate FiO2 06/17/17 07:40 76 121/64 (83) 06/17/17 07:40 97.8 18 06/16/17 21:06 98.1 91 19 122/67 (85) Result Diagram: 06/16/17 0546 Objective Remarks GENERAL: Well-nourished, well-developed patient. CARDIOVASCULAR: Regular rate and rhythm without murmurs, gallops, or rubs. RESPIRATORY: Breath sounds equal bilaterally. No accessory muscle use. ABDOMEN/GI: Abdomen soft, mildly tender, bowel sounds present. Incision: Clean, dry and intact. Fundus: Firm, non-tender at umbilicus. GENITOURINARY: Light to moderate bleeding. EXTREMITIES: No cyanosis or edema, non-tender, without signs of DVT. Medications and IVs Current Medications Medications (Trade) Dose Ordered Sig/Evelio Route Start Time Stop Time Status Last Admin (NS Flush) 2 ml BID IV FLUSH 06/14/17 21:00 (NS Flush) 2 ml UNSCH PRN IV FLUSH 06/14/17 14:15 (Mylicon Chew) 80 mg QID PRN PO 06/14/17 14:15 06/16/17 20:23 (Tylenol) 650 mg Q6H PRN PO 06/14/17 14:15 (Percocet 5-325 Mg) 1 tab Q4H PRN PO 06/14/17 14:15 06/17/17 04:15 (Percocet 5-325 Mg) 2 tab Q4H PRN PO 06/14/17 14:15 06/16/17 20:16 (Dot-Colace) 2 tab Q12H PRN PO 06/14/17 14:15 06/15/17 22:25 (Zofran Inj) 4 mg Q6H PRN IV PUSH 06/14/17 14:15 (Ferrous Sulfate) 325 mg BID PO 06/15/17 09:00 06/16/17 20:16 (Tylenol) 650 mg Q4H PRN PO 06/15/17 07:15 (Benadryl) 25 mg Q4H PRN PO 06/15/17 07:15 (Motrin) 600 mg Q6H PRN PO 06/16/17 08:45 06/17/17 04:14 Assessment/Plan Assessment and Plan 31 y/o female who is POD# 3 s/p repeat -Continue routine care -Percocet and Motrin PRN pain -Pericolase PRN for constipation -Encouraged OOB. Advised pelvic rest for 6 wks -Patient sudeep to be removed and Steri-Strips to be applied prior to discharge -Will need a follow-up appointment within 1 week for incision check -Re: ctrl - pt has not decided but may get a vasectomy, plan to discuss at follow-up appointment Postoperative blood loss -H/H 06/16/17: 7.4/21.6, stable from posttransfusion H/H -Patient symptomatic with dizziness exacerbated by ambulation, improved from prior exam -Transfused 1 unit PRBC 06/15/17 -Patient to be discharged home on ferrous sulfate 3 times a day with meals -Discharge today Seen and discussed with Lorenzo Askew MD R2 Jun 17, 2017 09:25
[2017-06-17] MEDS: FERROUS SULFATE 325 MG (65 MG ELEMENTAL IRON) TAB PO SCH (10:41)
== END 2017-06-17 11:29 | disposition home or self-care (01) | DRG 766 ==
LOC: H2EB 08:53 → H1EA 13:51
PROVIDERS: ADMIT Obstetrics & Gynecology; ATTEND Obstetrics & Gynecology
PROC: 10D00Z0 Extraction of Products of Conception, High, Open Approach (ICD-10-PCS; principal; 2017-06-14)
PROC: 30233N1 Transfusion of Nonautologous Red Blood Cells into Peripheral Vein, Percutaneous Approach (ICD-10-PCS; 2017-06-15)
DX: O34.211 Maternal care for low transverse scar from previous cesarean delivery (principal); Z37.0 Single live birth; Z83.3 Family history of diabetes mellitus; Z3A.39 39 weeks gestation of pregnancy; Z23 Encounter for immunization
CPT/HCPCS: 36430; 59025; 80074; 80307; 81001; 85014; 85018; 85025; 85027; 86592; 86703; 86762; 86850; 86900; 86901; 86920; 90686; 90715; G0481; J0131; J0690; J1100; J1885; J2250; J2270; J2274; J2370; J2405; J2590; J3010; J7120; P9016; Q2038

== ENCOUNTER 2017-07-14 12:08 | Emergency (ER) | payer OTHER ==
[~2017-07-14] VITALS: Ht 149.9 cm; Wt 56.7 kg
[~2017-07-14 12:08] MED LIST: FERR325T20 PO; IBUP-232 PO; OXYC1TAB63 PO; PERI PO
--- NOTE | 2017-07-14 12:37 | PD ---
HPI Chief Complaint Incision check Date Seen: Jul 14, 2017 Time Seen: 12:34 Travel History International Travel<30 Days: No Contact w/Intl Traveler<30Days: No Known Affected Area: No History of Present Illness HPI 32-year-old female status post section 4 weeks ago comes in for an incision check. She was seen at the urgent care center placed on antibiotics for a wound infection, Keflex was given. She complains that she has got a little seepage through a hole in her incision, this is been going on for a couple of weeks. Patient denies fever, pain, or redness History Past Medical History Medical History: Denies Significant Hx Obstetric History Obstetric History section 4 weeks ago Family History Family History: Negative Social History Alcohol Use: No Tobacco Use: No Substance Abuse: No Allergies-Medications (Allergen,Severity, Reaction): Coded Allergies: No Known Allergies (Unverified Allergy, Unknown, 06/14/17) Home Meds Active Scripts Ferrous Sulfate (Ferosul) 325 Mg (65 Mg Iron) Tablet, 325 MG PO TID, #90 TAB 1 Refill Prov:Lorenzo Cohen MD R2 06/17/17 Sennosides-Docusate Sodium (Gnp Senna Plus 8.6-50 mg) 8.6 Mg-50 Mg Tab, 2 TAB PO Q12H Y for CONSTIPATION, #60 TAB Prov:Lorenzo Cohen MD R2 06/17/17 Oxycodone HCl/Acetaminophen (Oxycodone-Acetaminophen 5-325) 5 Mg-325 Mg Tablet, 1 TAB PO Q4H Y for PAIN SCALE 6 TO 10, #20 TAB Prov:Lorenzo Cohen MD R2 06/17/17 Ibuprofen (Ibuprofen) 600 Mg Tab, 600 MG PO Q6H Y for CRAMPING, #60 TAB Prov:Lorenzo Cohen MD R2 06/17/17 Review of Systems Except as stated in HPI: all other systems reviewed are Neg Physical Exam Narrative ABDOMEN/GI: Abdomen soft, non-tender, bowel sounds present, no rebound, no guarding. , fundus is not palpable. Incision is healing well patient is a tiny pinhole with small amount of serous drainage whenever I push aggressively. Rest of the incision is healing normally EXTREMITIES: No cyanosis or edema. BACK: Nontender without obvious deformity. No CVA tenderness. NEUROLOGICAL: Awake and alert. Motor and sensory grossly within normal limits. Five out of 5 muscle strength in all muscle groups. Normal speech. MDM Medical Record Reviewed: Yes Plan 32-year-old postop patient status post section 4 weeks ago Normal healing incision with a tiny pinpoint hole Patient can keep this area covered with a Band-Aid but no other further measures need to be taken Patient was given Keflex by urgent care but she has no wound infection and this is unnecessary Diagnosis Diagnosis: Primary Impression: Visit for wound check Disposition: 01 DISCHARGE HOME Laura Alcala MD Jul 14, 2017 12:37
== END 2017-07-14 13:39 | disposition home or self-care (01) ==
LOC: HOBED 12:08
DX: Z39.2 Encounter for routine postpartum follow-up (principal)
CPT/HCPCS: 99281